=== PATIENT | male | born 1940 | race Caucasian/White ===

== ENCOUNTER → 2016-04-06 | Outpatient (CLI) | payer OTHER ==
[~2016-04-06] MED LIST: ASPI-232 PO; CARB25TA12 PO; DICY10CA55 PO; OMEP20CA9 PO; SIMV40TA2 PO; TAMS0.4C59 PO
[2016-04-06 09:32] LABS: BASO % 0.2 %; BASO ABS # 0.02 K/uL (0-0.2); COMPLETE YES; EOS % 2.9 %; HEMATOCRIT 42.5 % (42-52); IG% 0.5 %; LYMPH % 31.3 %; MEAN CORPUSCULAR HEMOGLOBIN 33.8 pg (25-34); MEAN CORPUSCULAR HGB CONC 34.8 g/dl (32-36); MEAN PLATELET VOLUME 10.9 fL (7.4-10.4); MONO % 8.5 %; NEUT % 56.6 %; PLATELET COUNT 200 K/uL (130-400); RED BLOOD COUNT 4.38 M/uL (4.7-6.1); WHITE BLOOD COUNT 8.32 K/uL (4.8-10.8)
[2016-04-06 09:54] LABS: ALT/SGPT 13 U/L (12-78); AST/SGOT 26 U/L (15-37); BLOOD UREA NITROGEN 14 mg/dl (7-18); BUN/CREATININE RATIO 12.9 (10-20); CALCIUM 8.5 mg/dl (8.5-10.1); CARBON DIOXIDE 31 mmol/L (21-32); CHLORIDE 107 mmol/L (98-107); CHOLESTEROL 120 mg/dl (0-200); CHOLESTEROL/HDL RATIO 3.2; GLUCOSE 105 mg/dl (70-99); HDL CHOLESTEROL 38 mg/dl; LDL CHOLESTEROL CALCULATED 71 mg/dl; POTASSIUM 3.9 mmol/L (3.5-5.1); SODIUM 143 mmol/L (136-145); TRIGLYCERIDES 57 mg/dl (0-150); VERY LOW DENSITY LIPOPROT CALC 11 mg/dl
[2016-04-06 10:35] LABS: ESTIMATED AVERAGE GLUCOSE 114 mg/dl; HA1C FLAG Normal (Normal)
--- NOTE | 2016-04-10 13:18 | CODING QUERY MEDICAL NECESSITY ---
SUPPORTING DIAGNOSIS NEEDED A supporting diagnosis is required for the test/procedure performed on this patient in order for us to be reimbursed by the patient's insurance. Please provide a supporting diagnosis for the following test/procedure listed below next to the test name along with your signature. *If there is no additional diagnosis for this patient that would support the following test/procedure please document that below next to the test/procedure. Test(s)/Procedure(s) that require a supporting diagnosis: DOS 04/06 * Hba1c DIAGNOSIS: * Lipids DIAGNOSIS: Provider Signature: Date: Thank you R[facility] Once completed, please kindly fax back to [phone] For questions please call [phone]
== END | disposition home or self-care (01) ==
LOC: C.LAB 08:18
PROVIDERS: ATTEND Internal Medicine
DX: J02.9 Acute pharyngitis, unspecified (principal); R73.9 Hyperglycemia, unspecified; E78.00 Pure hypercholesterolemia, unspecified

== ENCOUNTER → 2016-10-04 | Outpatient (CLI) | payer OTHER ==
[2016-10-04 09:34] LABS: BASO % 0.2 %; BASO ABS # 0.02 K/uL (0-0.2); COMPLETE YES; EOS % 2.9 %; HEMATOCRIT 43.1 % (42-52); IG% 0.3 %; LYMPH % 29.4 %; LYMPH ABS # 2.54 K/uL (1.2-3.4); MEAN CELL VOLUME 97.5 fL (80-100); MEAN CORPUSCULAR HEMOGLOBIN 32.6 pg (25-34); MEAN CORPUSCULAR HGB CONC 33.4 g/dl (32-36); MEAN PLATELET VOLUME 10.6 fL (7.4-10.4); MONO % 9.7 %; NEUT % 57.5 %; PLATELET COUNT 208 K/uL (130-400); RED BLOOD COUNT 4.42 M/uL (4.7-6.1); WHITE BLOOD COUNT 8.64 K/uL (4.8-10.8)
[2016-10-04 09:38] LABS: URINE APPEARANCE CLEAR (CLEAR); URINE BILIRUBIN NEG (NEG); URINE COLOR YELLOW; URINE NITRITE NEG (NEG); URINE PH 6.5 (4.5-7.5); URINE SPECIFIC GRAVITY 1.025 (1.000-1.030); UROBILINOGEN NEG (NEG)
[2016-10-04 09:39] LABS: MANUAL MICROSCOPIC REQUIRED? NO; REVIEW REQ? NO
[2016-10-04 09:50] LABS: ALT/SGPT 15 U/L (12-78); AST/SGOT 33 U/L (15-37); BLOOD UREA NITROGEN 19 mg/dl (7-18); BUN/CREATININE RATIO 19.5 (10-20); CALCIUM 8.6 mg/dl (8.5-10.1); CARBON DIOXIDE 31 mmol/L (21-32); CHLORIDE 107 mmol/L (98-107); CREATININE 0.98 mg/dl (0.60-1.40); GLUCOSE 105 mg/dl (70-99); HDL CHOLESTEROL 40 mg/dl; POTASSIUM 4.2 mmol/L (3.5-5.1); SODIUM 142 mmol/L (136-145)
[2016-10-04 09:57] LABS: ESTIMATED AVERAGE GLUCOSE 117 mg/dl; HA1C FLAG Normal (Normal)
[2016-10-04 10:00] LABS: CHOLESTEROL 119 mg/dl (0-200); LDL CHOLESTEROL CALCULATED 67 mg/dl; TRIGLYCERIDES 59 mg/dl (0-150); VERY LOW DENSITY LIPOPROT CALC 12 mg/dl
--- NOTE | 2016-10-10 10:13 | CODING QUERY MEDICAL NECESSITY ---
SUPPORTING DIAGNOSIS NEEDED Dr. Evans, A supporting diagnosis is required for the test/procedure performed on this patient in order for us to be reimbursed by the patient's insurance. Please provide a supporting diagnosis for the following test/procedure listed below next to the test name along with your signature. *If there is no additional diagnosis for this patient that would support the following test/procedure please document that below next to the test/procedure. Test(s)/Procedure(s) that require a supporting diagnosis: * [id number] GLYCATED HEMOGLOBIN DIAGNOSIS: DATE OF SERVICE: 10/04/16 Provider Signature: Date: Thank you [facility] Once completed, please kindly fax back to [phone] For questions please call [phone]
== END | disposition home or self-care (01) ==
LOC: C.LAB 07:45
PROVIDERS: ATTEND Internal Medicine
DX: E78.00 Pure hypercholesterolemia, unspecified (principal); R73.9 Hyperglycemia, unspecified

== ENCOUNTER → 2017-04-11 | Outpatient (CLI) | payer OTHER ==
[2017-04-11 09:28] LABS: BASO % 0.4 %; BASO ABS # 0.04 K/uL (0-0.2); EOS % 2.8 %; EOS ABS # 0.25 K/uL (0-0.5); HEMATOCRIT 43.3 % (42-52); HEMOGLOBIN 15.2 g/dL (14.0-18.0); IG# 0.05 K/uL (0.00-0.02); LYMPH % 30.7 %; LYMPH ABS # 2.78 K/uL (1.2-3.4); MEAN CELL VOLUME 97.5 fL (80-100); MEAN CORPUSCULAR HEMOGLOBIN 34.2 pg (25-34); MEAN CORPUSCULAR HGB CONC 35.1 g/dl (32-36); MEAN PLATELET VOLUME 11.1 fL (7.4-10.4); MONO % 7.3 %; MONO ABS # 0.66 K/uL (0.11-0.59); NEUT % 58.2 %; NEUT ABS # 5.27 K/uL (1.4-6.5); PLATELET COUNT 181 K/uL (130-400); RED CELL DISTRIBUTION WIDTH SD 46.3 fL (36.4-46.3); WHITE BLOOD COUNT 9.05 K/uL (4.8-10.8)
[2017-04-11 09:39] LABS: ALT/SGPT 9 U/L (12-78); AST/SGOT 21 U/L (15-37); BLOOD UREA NITROGEN 17 mg/dl (7-18); CALCIUM 8.7 mg/dl (8.5-10.1); CARBON DIOXIDE 31 mmol/L (21-32); CHOLESTEROL 134 mg/dl (0-200); CREATININE 1.15 mg/dl (0.60-1.40); GLUCOSE 104 mg/dl (70-99); POTASSIUM 4.1 mmol/L (3.5-5.1); SODIUM 142 mmol/L (136-145)
[2017-04-11 09:42] LABS: LDL CHOLESTEROL CALCULATED 81 mg/dl
[2017-04-11 09:49] LABS: HEMOGLOBIN A1C 5.6 % (4.5-5.6)
== END | disposition home or self-care (01) ==
LOC: C.LAB 08:00
PROVIDERS: ATTEND Internal Medicine
DX: E78.00 Pure hypercholesterolemia, unspecified (principal)

== ENCOUNTER 2017-04-14 15:18 | Emergency (ER) | payer OTHER ==
[~2017-04-14] VITALS: Ht 175.3 cm; Wt 76.1 kg
[2017-04-14 15:32] VITALS: TEMP 36.7; Ht 175.3 cm; Wt 76.1 kg
--- NOTE | 2017-04-14 16:03 | DIAGNOSTIC IMAGING REPORT ---
R SHOULDER MIN 2 VIEWS ROUTINE CLINICAL HISTORY: R shoulder pain s/p fall trauma. Pain. COMPARISON: None. DISCUSSION: The bones and joint spaces appear intact. There is no evidence of fracture, dislocation or bony disease. Mild degenerative changes noted at the glenohumeral as well as acromioclavicular joints. No evidence for fracture. IMPRESSION: Moderate degenerative change. No acute bony abnormality. The above report was generated using voice recognition software. It may contain grammatical, syntax or spelling errors. Electronically signed by: Jayant Hines M.D. 04/14/2017 4:01 PM Dictated Date/Time: 04/14/2017 4:01 PM
[2017-04-14] MEDS ORDERED: TAMS0.4C38 PO (16:07)
--- NOTE | 2017-04-14 16:26 | EMERGENCY ROOM VISIT NOTE ---
ED Visit Note First contact with patient: 15:37 The patient was seen and examined with Christiano Bone PA-C. I agree with the history, physical and findings. Please see the note for disposition and details.
[2017-04-14 16:50] VITALS: BP 163/89; PULSE 66; O2SAT 96
--- NOTE | 2017-04-14 19:10 | EMERGENCY ROOM VISIT NOTE ---
History First contact with patient: 15:37 Chief Complaint: SHOULDER DISLOCATION Stated Complaint: DISLOCATED R SHOULDER History of Present Illness The patient is a 76 year old male who presents to the Emergency Room with complaints of right shoulder pain after he slipped and fell on ice, landing on his right elbow. The patient reports jamming his right shoulder. He is concerned that he dislocated the shoulder. He has had several left shoulder dislocations in the past. The patient denies any wrist, forearm or elbow pain. He denies any head injury, neck pain or back pain. He denies any paresthesias or numbness of the right upper extremity, and rates his discomfort a 3 out of 10. The patient is [id number]. 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 (2) Diverticulosis Colon (W/O Ment Of Hemorrhage) (3) DUODENAL ULCER NOS (4) Dystonia (5) Esophageal Reflux (6) Ext Hemorrhoid W/O Compl (7) Hydrocele Nos (8) Hyperlipidemia Nec/Nos (9) Hypertrophy (Benign) Of Prostate W/O Urinary Obst & Oth Luts (10) PURE HYPERCHOLESTEROLEM Family History FH: cancer FH: diabetes mellitus Social History Smoking Status: Never Smoker Alcohol Use: none Marital Status: Occupation Status: employed, retired Current/Historical Medications Scheduled Aspirin (Aspir-81), 81 MG PO DAILY Carbidopa/Levodopa (Sinemet 25MG/100MG), 25 TAB PO TID Omeprazole (Prilosec), 20 MG PO DAILY Simvastatin (Zocor), 40 MG PO HS Tamsulosin Hcl (Flomax), 0.4 MG PO HS Scheduled PRN Dicyclomine Hcl (Bentyl), 10 MG PO ACHS PRN for ABDOMINAL PAIN Physical Exam Vital Signs Date Time Temp Pulse Resp B/P (MAP) Pulse Ox O2 Delivery O2 Flow Rate FiO2 04/14/17 16:50 66 16 163/89 96 Room Air 04/14/17 15:32 36.7 66 18 156/88 96 Room Air Physical Exam CONSTITUTIONAL: Healthy and well nourished. Alert and oriented X 3 with positive affect. Patient does not appear in any significant distress on exam. HEENT: Normocephalic, atraumatic. Pupils equal, round and reactive. NECK: Full active range of motion without discomfort. RESPIRATORY: Clear to auscultation bilaterally with no wheezing, crackles, rhonchi or stridor. CARDIOVASCULAR: Regular rate and rhythm with no murmurs, rubs or gallops. GASTROINTESTINAL: Bowel sounds present in all quadrants. Soft and nontender to palpation. MUSCULOSKELETAL: Examination shows no significant worsening pain with gentle internal and external rotation of the right shoulder. He has minimal tenderness over the posterior and anterior shoulder region. No focal tenderness over the acromioclavicular joint or distal clavicle. No tenderness to palpation through the biceps/triceps musculature or elbow region. Flexion, extension, pronation and supination does not cause any discomfort. Distal pulses are intact. No tenderness to palpation through the central thoracolumbar spine. INTEGUMENTARY: No rash or other significant dermatologic conditions noted. NEUROLOGIC: Right upper extremity is sensory intact. Medical Decision & Procedures ER Provider Diagnostic Interpretation: My interpretation of right shoulder x-rays does not show any obvious fractures or dislocations. Radiologist report is as follows: R SHOULDER MIN 2 VIEWS ROUTINE CLINICAL HISTORY: R shoulder pain s/p fall trauma. Pain. COMPARISON: None. DISCUSSION: The bones and joint spaces appear intact. There is no evidence of fracture, dislocation or bony disease. Mild degenerative changes noted at the glenohumeral as well as acromioclavicular joints. No evidence for fracture. IMPRESSION: Moderate degenerative change. No acute bony abnormality. ED Course Patient history and physical exam were performed. Nurse's notes were reviewed. Vital signs were reviewed and marginally elevated. The patient refused any analgesics while in the emergency department. X-rays of the right shoulder were normal. The patient was advised of his normal x-ray findings. However, I did explain that he certainly could've injured the rotator cuff given his current symptoms. The patient was encouraged to intermittently apply ice to the shoulder. Gentle range of motion exercises to prevent stiffness. He was instructed to avoid heavy labor or activities with the shoulder. He was encouraged to follow-up with his PCP or orthopedics if symptoms are not improving within the next week. The patient reports that he already has an appointment scheduled for Sunday with his PCP, Dr. Evans. The patient was encouraged to alternate ibuprofen and Tylenol as needed for pain. The patient was happy with plan of care, voice understanding of all discharge instructions, refused any prescription analgesics, and rated his pain a 2 out of 10 at the time of discharge. The case was also discussed with Dr. Osei, ED attending physician, who also evaluated the patient and agrees with workup and plan of care. Medical Decision Impression Primary Impression: Right shoulder strain Additional Impression: Fall due to slipping on ice or snow Departure Information Referrals Harshal Evans M.D. (PCP) Patient Instructions My [facility] Problem Qualifiers
== END 2017-04-14 16:56 | disposition home or self-care (01) ==
LOC: C.EDB 15:19 → C.EDD 16:56
DX: S46.911A Strain of unspecified muscle, fascia and tendon at shoulder and upper arm level, right arm, initial encounter (principal); W01.0XXA Fall on same level from slipping, tripping and stumbling without subsequent striking against object, initial encounter; K26.9 Duodenal ulcer, unspecified as acute or chronic, without hemorrhage or perforation; G37.9 Demyelinating disease of central nervous system, unspecified; K57.30 Diverticulosis of large intestine without perforation or abscess without bleeding; G24.9 Dystonia, unspecified; K21.9 Gastro-esophageal reflux disease without esophagitis; N40.0 Benign prostatic hyperplasia without lower urinary tract symptoms; E78.00 Pure hypercholesterolemia, unspecified; K64.4 Residual hemorrhoidal skin tags; N43.3 Hydrocele, unspecified; Z79.82 Long term (current) use of aspirin; Z83.3 Family history of diabetes mellitus

== ENCOUNTER → 2017-05-09 | Outpatient (CLI) | payer OTHER ==
[~2017-05-09] MED LIST changes: +TAMS0.4C38 PO; -TAMS0.4C59 PO
--- NOTE | 2017-05-09 15:03 | DIAGNOSTIC IMAGING REPORT ---
MRI THE RIGHT SHOULDER NO CONTRAST CLINICAL HISTORY: Right shoulder pain status post trauma COMPARISON STUDY: Conventional radiographic study dated 04/14/2017 FINDINGS: There are no areas of marrow edema to indicate occult fracture or bone bruise. There is medial subluxation of the bicipital tendon which demonstrates superior thickening consistent with tendinopathy. There are full-thickness tears of the supraspinatus and infraspinatus tendons with approximate 4.5 cm of tendinous retraction. Mild degenerative changes are present within the acromioclavicular joint There is a small joint effusion. No labral tears are visualized. IMPRESSION: 1. Full-thickness tears of the supraspinatus and infraspinatus tendons with approximately 4.5 cm of tendinous retraction 2. Medial subluxation of the bicipital tendon with tendinopathy 3. Small joint effusion Electronically signed by: Jayesh Lynne M.D. 05/09/2017 3:01 PM Dictated Date/Time: 05/09/2017 2:57 PM
== END | disposition home or self-care (01) ==
LOC: C.MRI 13:57
PROVIDERS: ATTEND Internal Medicine
DX: S46.011A Strain of muscle(s) and tendon(s) of the rotator cuff of right shoulder, initial encounter (principal); S46.111A Strain of muscle, fascia and tendon of long head of biceps, right arm, initial encounter; X58.XXXA Exposure to other specified factors, initial encounter; M25.411 Effusion, right shoulder

== ENCOUNTER → 2017-10-25 | Outpatient (CLI) | payer OTHER ==
--- NOTE | 2017-10-25 16:33 | DIAGNOSTIC IMAGING REPORT ---
RIGHT FOOT 3 VIEWS HISTORY: S99.929A Toe [id number] Toe pain right [id number] COMPARISON: None. FINDINGS: Possible small nondisplaced fracture along the lateral base of the distal phalanx of the first toe. No dislocation. 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 The Lisfranc joint is intact. Soft tissues are unremarkable. No radiopaque foreign bodies. IMPRESSION: Possible small nondisplaced fracture at the lateral base of the distal phalanx of the first toe. Electronically signed by: Agusto Carpio M.D. 10/25/2017 4:32 PM Dictated Date/Time: 10/25/2017 4:30 PM
== END | disposition home or self-care (01) ==
LOC: C.RAD1850 15:54
PROVIDERS: ATTEND Physician Assistant
DX: S99.921A Unspecified injury of right foot, initial encounter (principal); X58.XXXA Exposure to other specified factors, initial encounter

== ENCOUNTER → 2017-11-22 | Outpatient (CLI) | payer OTHER ==
--- NOTE | 2017-11-22 15:55 | DIAGNOSTIC IMAGING REPORT ---
RIGHT GREAT TOE 3 VIEWS CLINICAL HISTORY: FRACTURE OF RIGHT GREAT TOE COMPARISON: X-ray the foot dated 10/25/2017 DISCUSSION: There is subtle cortical irregularity involving the base of the distal phalanx laterally. A nondisplaced fracture cannot be excluded. No periosteal reaction is evident. IMPRESSION: No change in the subtle cortical irregularity involving the base the distal phalanx. A nondisplaced fracture can again not be excluded. Electronically signed by: Jayesh Lynne M.D. 11/22/2017 3:54 PM Dictated Date/Time: 11/22/2017 3:51 PM
== END | disposition home or self-care (01) ==
LOC: C.RDSM 09:48
PROVIDERS: ATTEND Physician Assistant
DX: S92.401A Displaced unspecified fracture of right great toe, initial encounter for closed fracture (principal); X58.XXXA Exposure to other specified factors, initial encounter